=== PATIENT | female | born 1970 | race Caucasian/White ===

== ENCOUNTER 2019-09-17 20:44 | Emergency (ER) | payer BC ==
[2019-09-17 20:57] VITALS: BP 135/80; PULSE 92; TEMP 98.5; BMI 35.0
--- NOTE | 2019-09-17 21:51 | PDOC ---
Documentation entered by Sharon Nance SCRIBE, acting as scribe for Jordon Culp MD. Jordon Culp MD: This documentation has been prepared by the alvinibe, Sharon Nance SCRIBE, under my direction and personally reviewed by me in its entirety. I confirm that the documentation accurately reflects all work, treatment, procedures, and medical decision making performed by me. History of Present Illness - General Chief Complaint: Sore Throat Stated Complaint: SORE THROAT Time Seen by Provider: 09/17/19 20:47 History Source: Patient Exam Limitations: No Limitations - History of Present Illness Initial Comments: 09/17/19 21:24 The patient is a 48-year-old female who presents to the emergency department with throat discomfort. The patient presents with throat irritation and a low- grade temperature reading at home of 99.6. The patient reports sick contact with her son, who was recently diagnosed with strep throat. 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 The patient reports she felt some throat discomfort and wanted to be evaluated before the symptoms worsen. PAST MEDICAL HISTORY: Multiple strep throats in the past. 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 MEDICATIONS: reviewed ALLERGIES: As per nursing notes PCP: Dr. Guerra ([facility]). Review of system: General: +Low grade temperature to 99.6 at home. No chills, no weakness, no weight loss HEENT: +throat discomfort, No change in vision. No ear pain CardioVascular: No chest pain or shortness of breath Respiratory:No cough, or wheezing. Gastrointestinal: no nausea, vomiting, diarrhea or constipation, No rectal bleeding Genitourinary: No dysuria, hematuria, or frequency Musculoskeletal: No joint or muscle pain or swelling Neurologic: No headache, vertigo, dizziness or loss of consciousness Psychiatric: nor depression Skin: No rashes or easy bruising Endocrine: no increased thirst or abnormal weight change Allergic: no skin or latex allergy All other systems reviewed and normal Physical exam: GENERAL: The patient is awake, alert, and fully oriented, in no acute distress. HEAD: Normal with no signs of trauma. EYES: Pupils equal, round and reactive to light, extraocular movements intact, sclera anicteric, conjunctiva clear. Throat: mild erythema to the posterior oropharynx, tonsils mildly enlarged with mild exudate. Minimal submandibular lymphadenopathy. EXTREMITIES: Normal range of motion, no edema. NEUROLOGICAL: Normal speech, normal gait. PSYCH: Normal mood, normal affect. SKIN: Warm, Dry, normal turgor, no rashes or lesions noted. 09/17/19 21:50 Assessment and plan: This is a 48-year-old female who has history of multiple strep infections in the past. Patient son recently had a positive strep test and patient now has a sore throat and is concerned she may have strep. Patient does have some mild amount of exudate and slightly erythematous and enlarged tonsils. Patient had rapid strep sent 09/17/19 22:18 Rapid strep was negative however suspect it may be a false negative as patient's symptoms are very early on in the course of her possible strep throat. I did send this prescription to her pharmacy for Z-Theo in case the cultures came back positive. So patient will not have to have another visit. Patient discharged home. Past History - Medical History Allergies/Adverse Reactions: Allergies Allergy/AdvReac Type Severity Reaction Status Date / Time No Known Allergies Allergy Unverified 06/03/13 20:23 Home Medications: Ambulatory Orders Fexofenadine HCl [Gabby] 30 mg PO PRN PRN 06/03/13 Ascorbic Acid [C-1000] 1,000 mg PO DAILY 09/17/19 Azithromycin 250 mg PO DAILY #6 tablet 09/17/19 Cholecalciferol (Vitamin D3) [Vitamin D3 -] 1,000 unit PO DAILY 09/17/19 COPD: No - Psycho-Social/Smoking History Smoking History: Never smoked - Substance Abuse Hx (Audit-C & DAST Scrn) How often the patient has a drink containing alcohol: Never Score: In Men: 4 or > Positive; In Women: 3 or > Positive: 0 Screen Result (Pos requires Nsg. Audit-10AR): Negative In the last yr the pt used illegal drug/Rx for NonMed reason: No Score: Yes response is considered Positive: 0 Screen Result (Positive result requires Nsg. DAST-10): Negative *Physical Exam - Vital Signs Last Vital Signs Temp Pulse Resp BP Pulse Ox 98.5 F 92 H 15 135/80 100 09/17/19 20:45 09/17/19 20:45 09/17/19 20:45 09/17/19 20:45 09/17/19 20:45 Discharge - Discharge Information Problems reviewed: Yes Clinical Impression/Diagnosis: Pharyngitis Qualifiers: Pharyngitis/tonsillitis etiology: unspecified etiology Qualified Code(s): J02.9 - Acute pharyngitis, unspecified Condition: Good Disposition: HOME - Admission No - Additional Discharge Information Prescriptions: Azithromycin 250 mg PO DAILY #6 tablet - Follow up/Referral Referrals: Harley Guerra [Primary Care Provider] - - Patient Discharge Instructions Additional Instructions: Tylenol or Motrin as needed for the pain. I did send a prescription for a Z-Theo to your pharmacy. You have had strep throat often enough to know that if the symptoms progress further you will get the prescription filled and take as prescribed. Return to the emergency department immediately with ANY new, persistent or worsening symptoms. Continue any medications as previously prescribed by your physician. You should follow up with your primary doctor as soon as possible regarding today's emergency department visit. . Please make sure your doctor reviews the results of your emergency evaluation. Thank you for coming to the Emergency Department today for your care. It was a pleasure to see you today. Please note that your evaluation is INCOMPLETE until you follow-up with your doctor. - Post Discharge Activity
== END 2019-09-17 22:40 | disposition home or self-care (01) ==
LOC: FER 20:44
DX: J02.9 Acute pharyngitis, unspecified (principal)
CPT/HCPCS: 87070; 87880; 99283-25